=== PATIENT | female | born 1945 | race Caucasian/White ===

== ENCOUNTER 2017-01-20 10:51 | Emergency (ER) | payer MEDICARE ==
[~2017-01-20] VITALS: Ht 157.5 cm; Wt 81.8 kg
[2017-01-20 10:52] VITALS: BP 214/100; PULSE 84; RESP 18; TEMP 98.1; O2SAT 96
[2017-01-20] MEDS ORDERED: ACET300T2 PO (12:06)
[2017-01-20] MEDS ORDERED: CLON0.2T PO (12:06)
[2017-01-20] MEDS ORDERED: ATEN50TA PO (12:06)
[2017-01-20] MEDS ORDERED: BENA40TA PO (12:06)
[2017-01-20] MEDS ORDERED: AMLO10 PO (12:06)
[2017-01-20] MEDS ORDERED: LEVO.05 PO (12:06)
[2017-01-20] MEDS ORDERED: DEXAMETHASONE SOD PHOS 4 MG/ML VIAL IV PUSH ONE (12:15)
[2017-01-20] MEDS ORDERED: DIAZEPAM 5 MG TAB PO ONE (12:15)
[2017-01-20] MEDS ORDERED: KETOROLAC TROMETHAMINE 30 MG/ML (IVP) VIAL IV PUSH ONE ×2 (12:15→14:45)
--- NOTE | 2017-01-20 12:17 | PD ---
HPI Chief Complaint: Back/ Neck Pain or Injury Time Seen by Provider: 11:28 Travel History International Travel<30 days: No Contact w/Intl Traveler<30days: No Traveled to known affect area: No History of Present Illness HPI Patient is a 71-year-old female who presents to emergency room with complaints of right-sided low back pain with sciatica. Patient reports that 3 weeks ago, she began to have right-sided low back pain which radiates down her leg, she did see her primary care doctor Dr. Treviño who gave her a Toradol IM shot as well as a prescription for Tylenol with codeine for pain, patient reports that this is not helping her symptoms. Patient reports that she has not had any imaging performed to her low back, denies any incontinence of urine or stool. Patient denies any gait dysfunction. Patient denies any trauma to her back, denies any fall. Patient describes pain as moderate to severe, patient with no fever or chills. Patient reports that overall, she has been feeling general weakness as she has not been able to sleep due to this pain. Patient with no chest pain or shortness of breath, no other complaints at this time. PFSH Past Medical History Hx Anticoagulant Therapy: Yes (ASA) Cardiovascular Problems: Yes (HTN) Diminished Hearing: No Hypertension: Yes Musculoskeletal: Yes Tetanus Vaccination: > 5 Years Influenza Vaccination: Yes : 4 Para: 4 Past Surgical History Gynecologic Surgery: Yes Hysterectomy: Yes Social History Alcohol Use: No Tobacco Use: No Substance Use: No Allergies-Medications (Allergen,Severity, Reaction): Coded Allergies: No Known Allergies (Verified Allergy, Unknown, 01/20/17) Reported Meds & Prescriptions Reported Meds & Active Scripts Active Percocet (Oxycodone-Acetaminophen) 5-325 mg Tab 1 Tab PO Q6H PRN Ibuprofen 600 Mg Tab 600 Mg PO Q6H PRN Medrol Dosepak (Methylprednisolone) 4 Mg Dspk 4 Mg PO DIRECTED Per Pharmacist direction Reported Acetaminophen-Codeine 300-30 mg Tab 1 Tab PO Q8HR Synthroid (Levothyroxine Sodium) 50 Mcg Tab 50 Mcg PO DAILY Clonidine (Clonidine HCl) 0.2 Mg Tab 0.2 Mg PO BID Benazepril (Benazepril HCl) 40 Mg Tab 40 Mg PO DAILY Atenolol 50 Mg Tab 50 Mg PO BID Norvasc (Amlodipine Besylate) 10 Mg Tab 10 Mg PO DAILY Review of Systems General / Constitutional: No: Fever Eyes: No: Visual changes HENT: No: Headaches Cardiovascular: No: Chest Pain or Discomfort Respiratory: No: Shortness of Breath Gastrointestinal: No: Abdominal Pain Genitourinary: No: Dysuria Musculoskeletal: Positive: Pain (low back pain) Skin: No Rash Neurologic: No: Weakness Psychiatric: No: Depression Endocrine: No: Polydipsia Hematologic/Lymphatic: No: Easy Bruising Physical Exam Narrative GENERAL: Moderate distress SKIN: Focused skin assessment warm/dry. HEAD: Atraumatic. Normocephalic. EYES: Pupils equal and round. No scleral icterus. No injection or drainage. ENT: No nasal bleeding or discharge. Mucous membranes pink and moist. NECK: Trachea midline. No JVD. CARDIOVASCULAR: Regular rate and rhythm. No murmur appreciated. RESPIRATORY: No accessory muscle use. Clear to auscultation. Breath sounds equal bilaterally. GASTROINTESTINAL: Abdomen soft, non-tender, nondistended. Hepatic and splenic margins not palpable. MUSCULOSKELETAL: No obvious deformities. No clubbing. No cyanosis. No edema. Patient with right sided paraspinal tenderness, no saddle anesthesia, normal gait on ambulation NEUROLOGICAL: Awake and alert. No obvious cranial nerve deficits. Motor grossly within normal limits. Normal speech. PSYCHIATRIC: Appropriate mood and affect; insight and judgment normal. Data Data Last Documented VS Vital Signs Date Time Temp Pulse Resp B/P (MAP) Pulse Ox O2 Delivery O2 Flow Rate FiO2 01/20/17 13:34 16 01/20/17 12:53 98.0 68 144/73 (96) 96 Room Air Orders Orders Ct Lumb Spine W/O Contrast (01/20/17 ) Basic Metabolic Panel (Bmp) (01/20/17 11:36) Complete Blood Count With Diff (01/20/17 11:36) Prothrombin Time / Inr (Pt) (01/20/17 11:36) Act Partial Throm Time (Ptt) (01/20/17 11:36) Iv Access Insert/Monitor (01/20/17 11:36) Dexamethasone Inj (Decadron Inj) (01/20/17 12:15) Ketorolac Inj (Toradol Inj) (01/20/17 12:15) Diazepam (Valium) (01/20/17 12:15) Labs Laboratory Tests Test 01/20/17 11:15 White Blood Count 12.4 TH/MM3 Red Blood Count 4.58 MIL/MM3 Hemoglobin 14.3 GM/DL Hematocrit 43.2 % Mean Corpuscular Volume 94.3 FL Mean Corpuscular Hemoglobin 31.2 PG Mean Corpuscular Hemoglobin Concent 33.1 % Red Cell Distribution Width 14.4 % Platelet Count 307 TH/MM3 Mean Platelet Volume 9.0 FL Neutrophils (%) (Auto) 75.8 % Lymphocytes (%) (Auto) 14.3 % Monocytes (%) (Auto) 9.3 % Eosinophils (%) (Auto) 0.2 % Basophils (%) (Auto) 0.4 % Neutrophils # (Auto) 9.4 TH/MM3 Lymphocytes # (Auto) 1.8 TH/MM3 Monocytes # (Auto) 1.2 TH/MM3 Eosinophils # (Auto) 0.0 TH/MM3 Basophils # (Auto) 0.0 TH/MM3 CBC Comment DIFF FINAL Differential Comment Prothrombin Time 10.6 SEC Prothromb Time International Ratio 1.0 RATIO Activated Partial Thromboplast Time 22.9 SEC Blood Urea Nitrogen 15 MG/DL Creatinine 1.04 MG/DL Random Glucose 121 MG/DL Calcium Level 9.8 MG/DL Sodium Level 139 MEQ/L Potassium Level 3.8 MEQ/L Chloride Level 105 MEQ/L Carbon Dioxide Level 24.8 MEQ/L Anion Gap 9 MEQ/L Estimat Glomerular Filtration Rate 52 ML/MIN [facility] Medical Decision Making Medical Screen Exam Complete: Yes Emergency Medical Condition: Yes Medical Record Reviewed: Yes Interpretation(s) Vital Signs Date Time Temp Pulse Resp B/P (MAP) Pulse Ox O2 Delivery O2 Flow Rate FiO2 01/20/17 11:50 16 01/20/17 10:52 98.1 84 18 214/100 (138) 96 Room Air Differential Diagnosis lumbar strain, sciatica, disc compression Narrative Course Patient with right-sided low back pain/sciatica, no signs of cauda equina During the course of the patients emergency department visit, the patients history, examination, and differential diagnosis were reviewed with the patient. The patient was placed on a cardiac specialist with oximetry and frequent blood pressure monitoring. The patient had an IV access obtained and blood work sent for analysis. Patient's blood pressure is elevated today, patient does take 3 blood pressure medications which she has been compliant with. Patient reports that blood pressure is likely elevated due to pain. The patient was initially provided IV dexamethasone, iv toradol and oral valium The patients laboratory studies were reviewed and remarkable for: Laboratory Tests Test 01/20/17 11:15 White Blood Count 12.4 TH/MM3 (4.0-11.0) Red Blood Count 4.58 MIL/MM3 (4.00-5.30) Hemoglobin 14.3 GM/DL (11.6-15.3) Hematocrit 43.2 % (35.0-46.0) Mean Corpuscular Volume 94.3 FL (80.0-100.0) Mean Corpuscular Hemoglobin 31.2 PG (27.0-34.0) Mean Corpuscular Hemoglobin Concent 33.1 % (32.0-36.0) Red Cell Distribution Width 14.4 % (11.6-17.2) Platelet Count 307 TH/MM3 (150-450) Mean Platelet Volume 9.0 FL (7.0-11.0) Neutrophils (%) (Auto) 75.8 % (16.0-70.0) Lymphocytes (%) (Auto) 14.3 % (9.0-44.0) Monocytes (%) (Auto) 9.3 % (0.0-8.0) Eosinophils (%) (Auto) 0.2 % (0.0-4.0) Basophils (%) (Auto) 0.4 % (0.0-2.0) Neutrophils # (Auto) 9.4 TH/MM3 (1.8-7.7) Lymphocytes # (Auto) 1.8 TH/MM3 (1.0-4.8) Monocytes # (Auto) 1.2 TH/MM3 (0-0.9) Eosinophils # (Auto) 0.0 TH/MM3 (0-0.4) Basophils # (Auto) 0.0 TH/MM3 (0-0.2) CBC Comment DIFF FINAL Differential Comment Prothrombin Time 10.6 SEC (9.8-11.6) Prothromb Time International Ratio 1.0 RATIO Activated Partial Thromboplast Time 22.9 SEC (24.3-30.1) Blood Urea Nitrogen 15 MG/DL (7-18) Creatinine 1.04 MG/DL (0.50-1.00) Random Glucose 121 MG/DL (74-106) Calcium Level 9.8 MG/DL (8.5-10.1) Sodium Level 139 MEQ/L (136-145) Potassium Level 3.8 MEQ/L (3.5-5.1) Chloride Level 105 MEQ/L (98-107) Carbon Dioxide Level 24.8 MEQ/L (21.0-32.0) Anion Gap 9 MEQ/L (5-15) Estimat Glomerular Filtration Rate 52 ML/MIN (>89) Radiology studies were reviewed and remarkable for Last Impressions Lumbar Spine CT 01/20/17 0000 Signed Impressions: Service Date/Time: Friday, January 20, 2017 12:43 - CONCLUSION: 1. Multilevel degenerative spondylosis of the lumbar spine most prominently at L3-5 with apparent moderate to severe central canal narrowing with central canal measuring approximately 8 mm. 2. Multiple facet arthropathy and multilevel mild left neural foraminal narrowing. 3. Please see above for detailed description of each level. 4. Incidental note of 1.6 cm low density right adrenal mass consistent with adrenal adenoma. Keith Posey MD Patient reevaluated, patient feeling much better at this time. I reviewed all labs and all studies as well as all incidental findings with patient in detail. A copy of her studies were given to her discharge. Patient will follow-up with primary care doctor as well as orthopedic surgery and will return to ER as needed Diagnosis Primary Impression: Lumbago with sciatica, right side Additional Impressions: Spondylosis of lumbar spine Adrenal mass, right Referrals: Мария Nunez MD Patient Instructions: General Instructions Additional Instructions: Please provide patient with a copy of their lab work and studies at discharge* * Please follow up with your primary care doctor in 2-3 days Return to the ER if symptoms worsen or progress Return to the ER as needed Med/Other Pt SpecificInfo: Prescription(s) given Scripts Oxycodone-Acetaminophen (Percocet) 5-325 mg Tab 1 TAB PO Q6H Y for PAIN, #7 TAB 0 Refills Prov: Ruby Benítez DO 01/20/17 Ibuprofen (Ibuprofen) 600 Mg Tab 600 MG PO Q6H Y for Pain/Inflammation, #40 TAB 0 Refills Prov: Rbuy Benítez DO 01/20/17 Methylprednisolone Dosepak (Medrol Dosepak) 4 Mg Dspk 4 MG PO DIRECTED, #1 DSPK 0 Refills Per Pharmacist direction Prov: Ruby Benítez DO 01/20/17 Disposition: 01 DISCHARGE HOME Condition: Stable Ruby Benítez DO Jan 20, 2017 12:17
[2017-01-20 12:32] LABS: AUTOMATED NEUTROPHIL # 9.4 TH/MM3 (1.8-7.7); BASOPHIL % 0.4 % (0.0-2.0); EOSINOPHIL % 0.2 % (0.0-4.0); HEMATOCRIT 43.2 % (35.0-46.0); HEMO FLAGS DIFF FINAL; LYMPH % 14.3 % (9.0-44.0); LYMPHOCYTE # 1.8 TH/MM3 (1.0-4.8); MEAN CELL VOLUME 94.3 FL (80.0-100.0); MEAN CORPUSCULAR HEMOGLOBIN 31.2 PG (27.0-34.0); MEAN CORPUSCULAR HGB CONC 33.1 % (32.0-36.0); MONO % 9.3 % (0.0-8.0); NEUT % 75.8 % (16.0-70.0); PLATELET COUNT 307 TH/MM3 (150-450); RED BLOOD COUNT 4.58 MIL/MM3 (4.00-5.30); RED CELL DISTRIBUTION WIDTH 14.4 % (11.6-17.2); WHITE BLOOD COUNT 12.4 TH/MM3 (4.0-11.0)
[2017-01-20 12:43] LABS: BICARBONATE 24.8 MEQ/L (21.0-32.0); POTASSIUM 3.8 MEQ/L (3.5-5.1)
[2017-01-20 12:44] LABS: APTT (PATIENT) 22.9 SEC (24.3-30.1); PROTHROMBIN TIME - PATIENT 10.6 SEC (9.8-11.6)
[2017-01-20 12:53] VITALS: BP 144/73; PULSE 68; RESP 18; TEMP 98; O2SAT 96
[2017-01-20 13:34] VITALS: RESP 16
--- NOTE | 2017-01-20 13:54 | RADRPT ---
EXAM DATE/TIME: 01/20/2017 12:43 [facility] COMPARISON: No previous studies available for comparison. INDICATIONS : Radiculopathy,back pain RADIATION DOSE: 37.16 CTDIvol (mGy) MEDICAL HISTORY : Hypertension. SURGICAL HISTORY : None. ENCOUNTER: Initial ACUITY: 1 day PAIN SCALE: 7/10 LOCATION: [facility] TECHNIQUE: Volumetric scanning of the lumbar spine was performed. Multiplanar reconstructions in the sagittal, coronal and oblique axial planes were performed. Using automated exposure control and adjustment of the mA and/or kV according to patient size, radiation dose was kept as low as reasonably achievable t o obtain optimal diagnostic quality images. DICOM format image data is available electronically for review and comparison. FINDINGS: VERTEBRAE: Per tube heights are intact without evidence for acute bony fracture. ALIGNMENT: Approximate 7 mm anterolisthesis of L4 on L5. Remaining sagittal alignment is maintained. PARASPINAL SOFT TISSUES: 1.6 cm low density right adrenal mass consistent with adenoma. Visualized portions of the kidneys dem onstrate no significant contour deforming abnormality. Abdominal aorta is non-aneurysmal. No signific ant retroperitoneal adenopathy. T12-L1: The thecal sac has a normal diameter. No evidence of disc bulge or protrusion. The neural foramina are patent bilaterally. L1-L2: Anterior osteophytes with mild diffuse disc bulge without significant central canal stenosis. Mild ca udal left neural foraminal narrowing. L2-L3: Anterior osteophytes with mild diffuse disc bulge with mild effacement of the anterior thecal sac. Mi ld bilateral facet arthropathy. Mild caudal left neural foraminal narrowing. L3-L4: Contralateral osteophytes with diffuse disc bulge, moderate ligamentum flavum hypertrophy and bilater al facet arthropathy. Central canal is narrowed to approximately 8 mm. Mild caudal left neural forami nal narrowing. L4-L5: Diffuse disc bulge with advanced facet arthropathy and mild ligament flavum hypertrophy. Central uli l narrowing to approximately 8 mm. Mild caudal bilateral neural foraminal narrowing. L5-S1: Very mild diffuse disc bulge with mild ligamentum flavum hypertrophy and moderate bilateral facet art hropathy. Mild caudal left neural foraminal narrowing. CONCLUSION: 1. Multilevel degenerative spondylosis of the lumbar spine most prominently at L3-5 with apparent mod erate to severe central canal narrowing with central canal measuring approximately 8 mm. 2. Multiple facet arthropathy and multilevel mild left neural foraminal narrowing. 3. Please see above for detailed description of each level. 4. Incidental note of 1.6 cm low density right adrenal mass consistent with adrenal adenoma. Keith Posey MD on January 20, 2017 at 13:42 Board Certified Radiologist. This report was verified electronically.
[2017-01-20] MEDS ORDERED: MEDR4PAK PO (14:08)
[2017-01-20] MEDS ORDERED: IBUP-232 PO (14:08)
[2017-01-20] MEDS ORDERED: PERC5TAB12 PO (14:09)
[2017-01-20 14:55] VITALS: BP 130/77; TEMP 97.8
== END 2017-01-20 14:55 | disposition home or self-care (01) ==
LOC: NEPD 10:51
DX: M54.41 Lumbago with sciatica, right side (principal); M47.896 Other spondylosis, lumbar region; E27.9 Disorder of adrenal gland, unspecified; R53.1 Weakness; I10 Essential (primary) hypertension; Z79.891 Long term (current) use of opiate analgesic; Z79.899 Other long term (current) drug therapy; Z79.01 Long term (current) use of anticoagulants
CPT/HCPCS: 72131; 80048; 85025; 85610; 85730; 96374; 96375; 96376; 99285; J1100; J1885

== ENCOUNTER 2017-01-24 20:18 | Emergency (ER) | payer MEDICARE ==
[~2017-01-24] VITALS: Ht 160 cm; Wt 81.4 kg
[~2017-01-24 20:18] MED LIST: ACET300T2 PO; AMLO10 PO; ATEN50TA PO; BENA40TA PO; CLON0.2T PO; IBUP-232 PO; LEVO.05 PO; MEDR4PAK PO; PERC5TAB12 PO
[2017-01-24 20:21] VITALS: BP 210/102; PULSE 85; RESP 20; TEMP 98; O2SAT 96
[2017-01-24 20:47] VITALS: BP 212/98; PULSE 79; RESP 18; TEMP 97.9; O2SAT 97
[2017-01-24 21:34] LABS: BASOPHIL % 0.3 % (0.0-2.0); EOSINOPHIL % 0.2 % (0.0-4.0); HEMATOCRIT 45.3 % (35.0-46.0); HEMO FLAGS DIFF FINAL; LYMPH % 20.9 % (9.0-44.0); LYMPHOCYTE # 3.1 TH/MM3 (1.0-4.8); MEAN CELL VOLUME 94.6 FL (80.0-100.0); MEAN CORPUSCULAR HEMOGLOBIN 30.5 PG (27.0-34.0); MEAN CORPUSCULAR HGB CONC 32.3 % (32.0-36.0); NEUT % 67.6 % (16.0-70.0); PLATELET COUNT 256 TH/MM3 (150-450); RED BLOOD COUNT 4.79 MIL/MM3 (4.00-5.30); RED CELL DISTRIBUTION WIDTH 14.1 % (11.6-17.2); WHITE BLOOD COUNT 14.8 TH/MM3 (4.0-11.0)
--- NOTE | 2017-01-24 21:36 | RADRPT ---
EXAM DATE/TIME: 01/24/2017 21:10 [facility] COMPARISON: No previous studies available for comparison. INDICATIONS : Weakness, shortness of breath started today. MEDICAL HISTORY : None. SURGICAL HISTORY : None. ENCOUNTER: Initial ACUITY: 1 day PAIN SCORE: 0/10 LOCATION: Bilateral chest FINDINGS: A single view of the chest demonstrates the lungs to be symmetrically aerated without evidence of mas s, infiltrate or effusion. The cardiomediastinal contours are unremarkable. Osseous structures are intact. CONCLUSION: No acute disease. Jeremy Ordaz MD on January 24, 2017 at 21:34 Board Certified Radiologist. This report was verified electronically.
[2017-01-24] MEDS ORDERED: SODIUM CHLOR 0.9% 1000 ML INJ 1,000 ML IV ONE ×2 (21:45→22:45)
[2017-01-24 21:46] LABS: ALT (GPT) 38 U/L (10-53)
[2017-01-24 21:50] LABS: ALKALINE PHOSPHATASE 92 U/L (45-117); TOTAL BILIRUBIN ADULT 0.4 MG/DL (0.2-1.0)
[2017-01-24 21:53] LABS: ANION GAP 9 MEQ/L (5-15); AST (GOT) 29 U/L (15-37); BICARBONATE 23.9 MEQ/L (21.0-32.0); BLOOD UREA NITROGEN 23 MG/DL (7-18); CHLORIDE 107 MEQ/L (98-107); GLOMERULAR FILTRATION RATE 43 ML/MIN (>89); MAGNESIUM 2.1 MG/DL (1.5-2.5); POTASSIUM 3.5 MEQ/L (3.5-5.1); SODIUM (NA) 140 MEQ/L (136-145)
--- NOTE | 2017-01-24 22:43 | PD ---
HPI . Weakness Chief Complaint: General Weakness Time Seen by Provider: 20:46 Travel History International Travel<30 days: No Contact w/Intl Traveler<30days: No Traveled to known affect area: No History of Present Illness HPI This patient presents with weakness. Onset was 3 days ago. Symptoms are getting progressively worse. She does not have any associated symptoms that would help to determine the etiology of her weakness. Specifically, no cold symptoms, no fever, no vomiting or diarrhea, no urinary tract symptoms, no cough or difficulty breathing. This patient was seen here on 01/20 with sciatica. She was discharged on Percocet, ibuprofen and Medrol. She reports that her sciatica is improved. PFSH Past Medical History Hx Anticoagulant Therapy: Yes (ASA) Cardiovascular Problems: Yes (HTN) Diminished Hearing: No Hypertension: Yes Musculoskeletal: Yes (BACK PAIN ) Thyroid Disease: Yes Tetanus Vaccination: > 5 Years ?: Not : 4 Para: 4 Past Surgical History Gynecologic Surgery: Yes Hysterectomy: Yes (1981) Social History Alcohol Use: No Tobacco Use: No Substance Use: No Allergies-Medications (Allergen,Severity, Reaction): Coded Allergies: No Known Allergies (Verified Allergy, Unknown, 01/24/17) Reported Meds & Prescriptions Reported Meds & Active Scripts Active Ibuprofen 600 Mg Tab 600 Mg PO Q6H PRN Medrol Dosepak (Methylprednisolone) 4 Mg Dspk 4 Mg PO DIRECTED Per Pharmacist direction Reported Acetaminophen-Codeine 300-30 mg Tab 1 Tab PO Q8HR Synthroid (Levothyroxine Sodium) 50 Mcg Tab 50 Mcg PO DAILY Clonidine (Clonidine HCl) 0.2 Mg Tab 0.2 Mg PO BID Benazepril (Benazepril HCl) 40 Mg Tab 40 Mg PO DAILY Atenolol 50 Mg Tab 50 Mg PO BID Norvasc (Amlodipine Besylate) 10 Mg Tab 10 Mg PO DAILY Review of Systems Except as stated in HPI: all other systems reviewed are Neg General / Constitutional: No: Fever, Chills HENT: No: Rhinorrhea, Congestion Respiratory: No: Cough, Shortness of Breath Gastrointestinal: No: Nausea, Vomiting, Diarrhea, Abdominal Pain Genitourinary: No: Urgency, Frequency, Dysuria Musculoskeletal: No: Myalgias, Arthralgias Neurologic: Positive: Weakness, No: Focal Abnormalities Physical Exam Narrative GENERAL: Awake and alert and in no acute distress. SKIN: warm/dry. Good color and turgor. HEAD: Normocephalic. Atraumatic. EYES: Pupils equal and round. No scleral icterus. No injection or drainage. ENT: No nasal bleeding or discharge. Mucous membranes pink and moist. NECK: Trachea midline. Full range of motion without pain.. CARDIOVASCULAR: Regular rate and rhythm. Heart sounds normal. RESPIRATORY: No accessory muscle use. Clear to auscultation. Breath sounds equal bilaterally. GASTROINTESTINAL: Abdomen soft. Nontender. Bowel sounds present. Nondistended. MUSCULOSKELETAL: No obvious deformities. NEUROLOGICAL: Awake and alert. No obvious cranial nerve deficits. Motor grossly within normal limits. Normal speech. PSYCHIATRIC: Appropriate mood and affect; insight and judgment normal. Data Data Last Documented VS Vital Signs Date Time Temp Pulse Resp B/P (MAP) Pulse Ox O2 Delivery O2 Flow Rate FiO2 01/24/17 20:47 97.9 79 18 212/98 (136) 97 01/24/17 20:21 Room Air Orders Orders Sepsis Workup Initiated (01/24/17 ) Complete Blood Count With Diff (01/24/17 20:56) Comprehensive Metabolic Panel (01/24/17 20:56) Lactic Acid Sepsis Protocol (01/24/17 20:56) Magnesium (Mg) (01/24/17 20:56) Troponin I (01/24/17 20:56) Urinalysis - C+S If Indicated (01/24/17 20:56) Blood Culture (01/24/17 20:56) Chest, Single Ap (01/24/17 20:56) Ecg Monitoring (01/24/17 20:56) Iv Access Insert/Monitor (01/24/17 20:56) Cath For Specimen (01/24/17 20:56) Oximetry (01/24/17 20:56) Sodium Chlor 0.9% 1000 Ml Inj (Ns 1000 M (01/24/17 21:45) Sodium Chlor 0.9% 1000 Ml Inj (Ns 1000 M (01/24/17 22:45) Urine Culture (01/24/17 22:35) Ceftriaxone Inj (Rocephin Inj) (01/24/17 23:30) Labs Laboratory Tests Test 01/24/17 21:05 01/24/17 22:35 White Blood Count 14.8 TH/MM3 Red Blood Count 4.79 MIL/MM3 Hemoglobin 14.6 GM/DL Hematocrit 45.3 % Mean Corpuscular Volume 94.6 FL Mean Corpuscular Hemoglobin 30.5 PG Mean Corpuscular Hemoglobin Concent 32.3 % Red Cell Distribution Width 14.1 % Platelet Count 256 TH/MM3 Mean Platelet Volume 8.9 FL Neutrophils (%) (Auto) 67.6 % Lymphocytes (%) (Auto) 20.9 % Monocytes (%) (Auto) 11.0 % Eosinophils (%) (Auto) 0.2 % Basophils (%) (Auto) 0.3 % Neutrophils # (Auto) 10.0 TH/MM3 Lymphocytes # (Auto) 3.1 TH/MM3 Monocytes # (Auto) 1.6 TH/MM3 Eosinophils # (Auto) 0.0 TH/MM3 Basophils # (Auto) 0.0 TH/MM3 CBC Comment DIFF FINAL Differential Comment Blood Urea Nitrogen 23 MG/DL Creatinine 1.22 MG/DL Random Glucose 128 MG/DL Total Protein 7.7 GM/DL Albumin 3.5 GM/DL Calcium Level 8.9 MG/DL Magnesium Level 2.1 MG/DL Alkaline Phosphatase 92 U/L Aspartate Amino Transf (AST/SGOT) 29 U/L Alanine Aminotransferase (ALT/SGPT) 38 U/L Total Bilirubin 0.4 MG/DL Sodium Level 140 MEQ/L Potassium Level 3.5 MEQ/L Chloride Level 107 MEQ/L Carbon Dioxide Level 23.9 MEQ/L Anion Gap 9 MEQ/L Estimat Glomerular Filtration Rate 43 ML/MIN Lactic Acid Level 1.3 mmol/L Troponin I LESS THAN 0.02 NG/ML Urine Color LIGHT-YELLOW Urine Turbidity HAZY Urine pH 6.5 Urine Specific [place] 1.007 Urine Protein TRACE mg/dL Urine Glucose (UA) NEG mg/dL Urine Ketones NEG mg/dL Urine Occult Blood TRACE Urine Nitrite NEG Urine Bilirubin NEG Urine Urobilinogen LESS THAN 2.0 MG/DL Urine Leukocyte Esterase LARGE Urine RBC 7 /hpf Urine WBC 93 /hpf Urine Squamous Epithelial Cells 13 /hpf Urine Bacteria MANY /hpf Microscopic Urinalysis Comment CATH-CULTURE IND MDM Medical Decision Making Medical Screen Exam Complete: Yes Emergency Medical Condition: Yes Medical Record Reviewed: Yes (the patient has no records here other than her visit on 01/20 for sciatica. She had a CT of her L-spine done at that time which shows diffuse degenerative changes and central canal narrowing.) Interpretation(s) EKG shows a lot of artifact. Normal sinus rhythm. No ST segment elevation or depression. No old EKGs for comparison. Differential Diagnosis Differential diagnosis of weakness includes but is not limited to infection, CVA , electrolyte disturbance, renal failure, hypoglycemia, UTI, ACS, acute blood loss Narrative Course Patient presents complaining with weakness. No obvious etiology for the weakness. CBC & BMP Diagram 01/24/17 21:05 Total Protein 7.7, Albumin 3.5, Calcium Level 8.9, Magnesium Level 2.1, Alkaline Phosphatase 92, Aspartate Amino Transf (AST/SGOT) 29, Alanine Aminotransferase (ALT/SGPT) 38, Total Bilirubin 0.4 BUN/creatinine are elevated compared to 01/20 compatible with dehydration. This plus the Percocet probably explains the weakness. This patient is on steroids. trop < 0.02 UA>>large LE, 7 RBCs, 93 WBCs, many bact Patient has been treated for UTI with Rocephin. We discharged to home on Keflex. Diagnosis Primary Impression: Weakness Additional Impressions: Dehydration Urinary tract infection Qualified Codes: N30.00 - Acute cystitis without hematuria Patient Instructions: Dehydration (DC), General Instructions, Urinary Tract Infection in (GEN), Weakness (DC) Med/Other Pt SpecificInfo: Prescription(s) given Scripts Cephalexin (Keflex) 500 Mg Capsule 500 MG PO Q8H for Infection for 5 Days, #15 CAP 0 Refills Prov: Angélica Florentino MD 01/24/17 Disposition: 01 DISCHARGE HOME Condition: Stable Angélica Florentino MD Jan 24, 2017 22:43
[2017-01-24 23:12] LABS: BACTERIA, URINE MANY /hpf; BLOOD, URINE TRACE (NEG); GLUCOSE,URINE NEG (NEG); KETONE, URINE NEG (NEG); NITRITE,URINE NEG (NEG); PH, URINE 6.5 (5.0-8.5); SQUAMOUS EPITHELIAL CELL URINE 13 /hpf (0-5); URINE COLOR LIGHT-YELLOW (YELLW/STRAW)
[2017-01-24 23:13] LABS: COMMENT (UR) CATH-CULTURE IND; CULTURE IF INDICATED CATH CULTURE IND
[2017-01-24] MEDS ORDERED: cefTRIAXone INJ 1,000 MG in SODIUM CHLORIDE 0.9% INJ 100 ML IV ONE (23:30)
[2017-01-24] MEDS ORDERED: CEPH-460 PO (23:53)
[2017-01-25 00:21] VITALS: BP 190/88
--- NOTE | 2017-01-25 13:21 | EKG ---
Date Performed: 01/24/2017 Time Performed: 21:00:28 PTAGE: 71 years EKG: Sinus rhythm NONSPECIFIC T-WAVE ABNORMALITY BORDERLINE ECG NO PREVIOUS TRACING DOCTOR: Osbaldo Lazo Interpretating Date/Time 01/25/2017 13:19:49
== END 2017-01-25 00:21 | disposition home or self-care (01) ==
LOC: NEPE 20:18
DX: E86.0 Dehydration (principal); N30.00 Acute cystitis without hematuria; B96.89 Other specified bacterial agents as the cause of diseases classified elsewhere; E07.9 Disorder of thyroid, unspecified; I10 Essential (primary) hypertension; R94.31 Abnormal electrocardiogram [ECG] [EKG]
CPT/HCPCS: 71010; 80053; 81001; 83605; 83735; 84484; 85025; 87040; 87086; 93005; 96361; 96365; 99285; J0696; J7030

== ENCOUNTER 2017-01-26 00:45 | Emergency (ER) | payer MEDICARE ==
[~2017-01-26] VITALS: Ht 160 cm; Wt 80.0 kg
[~2017-01-26 00:45] MED LIST changes: +CEPH-460 PO; -PERC5TAB12 PO
[2017-01-26 00:52] VITALS: BP 190/88; PULSE 78; RESP 16; TEMP 97.5; O2SAT 98
[2017-01-26] MEDS ORDERED: SODIUM CHLOR 0.9% 1000 ML INJ 1,000 ML IV ONE (00:59)
[2017-01-26] MEDS ORDERED: SODIUM CHLORIDE 0.9% FLUSH 10 ML FLUSH IVF PRN (01:00)
--- NOTE | 2017-01-26 01:28 | PD ---
HPI . Weakness Chief Complaint: Pain: Acute or Chronic Time Seen by Provider: 00:59 Travel History International Travel<30 days: No Contact w/Intl Traveler<30days: No Traveled to known affect area: No History of Present Illness HPI Patient presents with chief complaint of weakness. Onset was yesterday. She was seen here for the same thing night and was found to have a urinary tract infection and dehydration. She was treated in the emergency department with IV fluids and IV Zofran. She states that she felt better until later today when she started feeling weak again. She subsequently called 911 and presented back to us. No modifying factors. She states that she is so weak that she cannot walk. The patient was initially seen here on 01/20 with sciatica. She states that her sciatica has improved with conservative treatment. PFSH Past Medical History Hx Anticoagulant Therapy: Yes (ASA) Cardiovascular Problems: Yes (HTN) Diminished Hearing: No Hypertension: Yes Musculoskeletal: Yes (BACK PAIN ) Thyroid Disease: Yes : 4 Para: 4 Past Surgical History Gynecologic Surgery: Yes Hysterectomy: Yes (1981) Social History Alcohol Use: No Tobacco Use: No Substance Use: No Allergies-Medications (Allergen,Severity, Reaction): Coded Allergies: No Known Allergies (Verified Allergy, Unknown, 01/26/17) Reported Meds & Prescriptions Reported Meds & Active Scripts Active Keflex (Cephalexin) 500 Mg Capsule 500 Mg PO Q8H 5 Days Ibuprofen 600 Mg Tab 600 Mg PO Q6H PRN Medrol Dosepak (Methylprednisolone) 4 Mg Dspk 4 Mg PO DIRECTED Per Pharmacist direction Reported Acetaminophen-Codeine 300-30 mg Tab 1 Tab PO Q8HR Synthroid (Levothyroxine Sodium) 50 Mcg Tab 50 Mcg PO DAILY Clonidine (Clonidine HCl) 0.2 Mg Tab 0.2 Mg PO BID Benazepril (Benazepril HCl) 40 Mg Tab 40 Mg PO DAILY Atenolol 50 Mg Tab 50 Mg PO BID Norvasc (Amlodipine Besylate) 10 Mg Tab 10 Mg PO DAILY Review of Systems Except as stated in HPI: all other systems reviewed are Neg General / Constitutional: No: Fever, Chills Neurologic: Positive: Weakness, No: Focal Abnormalities, Change in Mentation Physical Exam Narrative GENERAL: Awake and alert and in no distress. SKIN: warm/dry. Good color and turgor. HEAD: Normocephalic. Atraumatic. EYES: Pupils equal and round. No scleral icterus. No injection or drainage. ENT: No nasal bleeding or discharge. Mucous membranes pink and moist. NECK: Trachea midline. Full range of motion without pain.. CARDIOVASCULAR: Regular rate and rhythm. RESPIRATORY: No accessory muscle use. Clear to auscultation. Breath sounds equal bilaterally. GASTROINTESTINAL: Abdomen soft. Nontender. Bowel sounds present. Nondistended. MUSCULOSKELETAL: No obvious deformities. NEUROLOGICAL: Awake and alert. No obvious cranial nerve deficits. Motor grossly within normal limits. Normal speech. Full and equal marker assembler strength. Msncep-[id number] exam is intact. PSYCHIATRIC: Appropriate mood and affect; insight and judgment normal. Data Data Last Documented VS Vital Signs Date Time Temp Pulse Resp B/P (MAP) Pulse Ox O2 Delivery O2 Flow Rate FiO2 01/26/17 00:52 97.5 78 16 190/88 (122) 98 Orders Orders Basic Metabolic Panel (Bmp) (01/26/17 00:59) Complete Blood Count With Diff (01/26/17 00:59) Urinalysis - C+S If Indicated (01/26/17 00:59) Iv Access Insert/Monitor (01/26/17 00:59) Sodium Chloride 0.9% Flush (Ns Flush) (01/26/17 01:00) Sodium Chlor 0.9% 1000 Ml Inj (Ns 1000 M (01/26/17 00:59) Orthostatic Vital Signs (01/26/17 00:59) Cath For Specimen (01/26/17 00:59) Labs Laboratory Tests Test 01/26/17 01:30 White Blood Count 12.0 TH/MM3 Red Blood Count 3.84 MIL/MM3 Hemoglobin 12.4 GM/DL Hematocrit 36.1 % Mean Corpuscular Volume 93.9 FL Mean Corpuscular Hemoglobin 32.3 PG Mean Corpuscular Hemoglobin Concent 34.4 % Red Cell Distribution Width 13.7 % Platelet Count 210 TH/MM3 Mean Platelet Volume 9.2 FL Neutrophils (%) (Auto) 68.4 % Lymphocytes (%) (Auto) 20.2 % Monocytes (%) (Auto) 10.7 % Eosinophils (%) (Auto) 0.6 % Basophils (%) (Auto) 0.1 % Neutrophils # (Auto) 8.2 TH/MM3 Lymphocytes # (Auto) 2.4 TH/MM3 Monocytes # (Auto) 1.3 TH/MM3 Eosinophils # (Auto) 0.1 TH/MM3 Basophils # (Auto) 0.0 TH/MM3 CBC Comment DIFF FINAL Differential Comment Urine Color YELLOW Urine Turbidity CLEAR Urine pH 5.5 Urine Specific [place] 1.015 Urine Protein TRACE mg/dL Urine Glucose (UA) NEG mg/dL Urine Ketones NEG mg/dL Urine Occult Blood NEG Urine Nitrite NEG Urine Bilirubin NEG Urine Urobilinogen LESS THAN 2.0 MG/DL Urine Leukocyte Esterase NEG Urine RBC 3 /hpf Urine WBC 1 /hpf Urine Squamous Epithelial Cells 1 /hpf Urine Mucus FEW /lpf Microscopic Urinalysis Comment CATH-CULT NOT IND Blood Urea Nitrogen 16 MG/DL Creatinine 0.83 MG/DL Random Glucose 113 MG/DL Calcium Level 8.3 MG/DL Sodium Level 142 MEQ/L Potassium Level 3.2 MEQ/L Chloride Level 110 MEQ/L Carbon Dioxide Level 21.7 MEQ/L Anion Gap 10 MEQ/L Estimat Glomerular Filtration Rate 67 ML/MIN MDM Medical Decision Making Medical Screen Exam Complete: Yes Emergency Medical Condition: Yes Medical Record Reviewed: Yes (white blood count yesterday was 14.9. The patient is on steroids. Her BUN/creatinine was 23/1.22. UA showed large LE, 7 RBC, 93 WBC) Differential Diagnosis Differential diagnosis of weakness includes but is not limited to infection, CVA , electrolyte disturbance, renal failure, hypoglycemia, UTI, ACS, acute blood loss Narrative Course Patient presents complaining with continued weakness. She was evaluated for same yesterday. She was found to be mildly dehydrated and to have a urinary tract infection. She was treated here with IV fluids and IV Rocephin. I have ordered repeat lab work. I will give her a liter of fluid while awaiting the results of that lab work. I have told the patient that she may need to consider long-term placement if she is too weak to take care of herself at home. I do not believe that she will meet any criteria for inpatient evaluation. CBC & BMP Diagram 01/26/17 01:30 Calcium Level 8.3 L UA is clear tonight. This patient's labs are improved since last night. She is stable for discharge to home. The history, exam, diagnostic testing, and current condition do not suggest any significant pathology to warrant further testing, continued ED treatment, admission, or surgical evaluation at this point. No EMC was found. The patient 's condition is stable and appropriate for discharge. Diagnosis Primary Impression: Weakness Patient Instructions: General Instructions, Weakness (DC) Additional Instructions: If your weakness persist, follow-up with your primary care provider. You may require a rehabilitation stay in a long-term. Disposition: 01 DISCHARGE HOME Condition: Stable Angélica Florentino MD Jan 26, 2017 01:28
[2017-01-26 02:03] LABS: AUTOMATED NEUTROPHIL # 8.2 TH/MM3 (1.8-7.7); BASOPHIL % 0.1 % (0.0-2.0); EOSINOPHIL # 0.1 TH/MM3 (0-0.4); EOSINOPHIL % 0.6 % (0.0-4.0); HEMATOCRIT 36.1 % (35.0-46.0); HEMO FLAGS DIFF FINAL; LYMPH % 20.2 % (9.0-44.0); LYMPHOCYTE # 2.4 TH/MM3 (1.0-4.8); MEAN CELL VOLUME 93.9 FL (80.0-100.0); MEAN CORPUSCULAR HEMOGLOBIN 32.3 PG (27.0-34.0); MEAN CORPUSCULAR HGB CONC 34.4 % (32.0-36.0); MONO % 10.7 % (0.0-8.0); NEUT % 68.4 % (16.0-70.0); PLATELET COUNT 210 TH/MM3 (150-450); RED BLOOD COUNT 3.84 MIL/MM3 (4.00-5.30); RED CELL DISTRIBUTION WIDTH 13.7 % (11.6-17.2)
[2017-01-26 02:12] LABS: BLOOD, URINE NEG (NEG); GLUCOSE,URINE NEG (NEG); KETONE, URINE NEG (NEG); MUCUS URINE FEW /lpf (OCC); NITRITE,URINE NEG (NEG); PH, URINE 5.5 (5.0-8.5); SQUAMOUS EPITHELIAL CELL URINE 1 /hpf (0-5); URINE COLOR YELLOW (YELLW/STRAW)
[2017-01-26 02:13] LABS: COMMENT (UR) CATH-CULT NOT IND; CULTURE IF INDICATED CATH CULTURE NOT IND
[2017-01-26 02:16] LABS: BICARBONATE 21.7 MEQ/L (21.0-32.0); POTASSIUM 3.2 MEQ/L (3.5-5.1)
== END 2017-01-26 02:51 | disposition home or self-care (01) ==
LOC: NEPE 00:45
DX: R53.1 Weakness (principal); I10 Essential (primary) hypertension
CPT/HCPCS: 80048; 81001; 85025; 99285; J7030